=== PATIENT | female | born 1960 | race Caucasian/White ===

== ENCOUNTER 2021-12-06 06:41 | Outpatient (CLI) | payer OTHER, SELFPAY ==
[2021-12-06 08:21] VITALS: BMI 22.7
--- NOTE | 2021-12-06 08:25 | ECG_ITS ---
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 Interpretive Statements NAME OF STUDY: EXERCISE SESTAMIBI STRESS TEST INDICATION: [ELLER/HEART MURMUR, ] EXERCISE DATA: The patient was exercised by Robin protocol. Baseline heart rate was 61 beats per minute. Baseline blood pressure was 143/72 millimeters of mercury. Target heart rate was 134 beats per minute. Maximum heart rate achieved was 142 which was 107% of the target heart rate. Maximum blood pressure was 232/55 millimeters of mercury. Total exercise time was 6 minutes 58 seconds. Maximum METs achieved was 10.2.The reason for ending the test was completion of tolerated. The patient complained of shortness of breath during the stress test, which then resolved at the end of the test. ELECTROCARDIOGRAM: BASELINE: Showed sinus rhythm, normal axis, no significant ST-T changes at the baseline noted. [] EXERCISE: At the peak exercise level, [] No significant ST-T changes suggestive of ischemia noted. [] RECOVERY: During the recovery period, heart rate dropped appropriately. No significant ST-T changes in the recovery suggestive of ischemia noted. [] CONCLUSION: 1. Exercise capacity good 2. Heart rate response was appropriate 3. Blood pressure response was hypertensive 4. Symptoms not suggestive of ischemia. 5. Electrocardiogram portion of the stress test was not suggestive of ischemia. 6. Nuclear scan will be documented separately. Electronically Signed On 12-18-2021 12:48:54 CDT by Abdiel Pringle M.D. [id number]
--- NOTE | 2021-12-06 08:26 | NMCV_ITS ---
NM sundeep perf SPECT r/s* [id number] Juana Dawkins Age: 61 Gender: F : 1960 Exam Date: 12/06/2021 08:58 Ordering Phys: Dorota Luis MD ([email or web address]) Technologist: VIVEK Wood Exam Location: [facility] Indications: DYSPNEA ON EXERTION STRESS TEST Please see separate stress test report in [facility] for full findings IMAGE PROTOCOL Rest/Stress 1 Exercise Day Radiopharmaceutical Dose (mCi) Administration Site Administered by Rest: Tc-99m 10.7 IV VIVEK George Sestamibi Stress:Tc-99m 32.6 IV VIVEK George Sestamigiana Rest: 06-Dec-2021 60 Discovery 630 Stress: 06-Dec-2021 15 Discovery 630 Radiopharmaceutical was injected at 85 % maximum heart rate. Images obtained in supine and prone position. SPECT RESULTS Technical Quality: Excellent Raw Data Analysis: Normal Image Corrections: No attenuation or motion correction applied Summed Stress Score: 0 Summed Rest Score: 1 Summed Difference Score: 0 PERFUSION FINDINGS Fairly uniform myocardial tracer uptake with no significant perfusion abnormalities. FUNCTIONAL RESULTS (calculated via Gated SPECT) Stress Image LV EF (%): 84 Stress EDV (mL):83 TID: 0.85 Stress ESV (mL):13 FUNCTIONAL FINDINGS: Segmental wall motion analysis revealing no gross wall motion normalities IMPRESSIONS 1. Myocardial perfusion imaging revealing fairly uniform myocardial tracer uptake with no significant perfusion abnormalities. 2. Normal LV ejection fraction of 84%. 3. LV wall motion analysis revealing no gross wall motion abnormalities. 4. Normal LV volume Low probability for coronary ischemia, based on the above findings No similar previous studies are available for comparison Dr Dorota Luis MD [facility] (Electronically Signed) Final Date: 07 December 2021 19:10 S
--- NOTE | 2021-12-06 10:15 | USCV_ITS ---
Juancho Juana Age: 61 Gender: F : 1960 Exam Date: 12/06/2021 11:03 Ordering Phys: Dorota Luis MD ([email or web address]) Technologist: Cynthia Dixon Exam Location: [facility] [place] Indication: CP, BP: 130 / 70 HR: 67 Rhythm: Sinus Technical Quality: Adequate MEASUREMENTS (Male / Female) Normal Values 2D ECHO LV Diastolic Diameter PLAX 4.5 cm 4.2 - 5.9 / 3.9 - 5.3 cm LV Systolic Diameter PLAX 2.9 cm IVS Diastolic Thickness 1.1 cm 0.6 - 1.0 / 0.6 - 0.9 cm IVS Systolic Thickness 1.1 cm LVPW Diastolic Thickness 0.9 cm 0.6 - 1.0 / 0.6 - 0.9 cm LVPW Systolic Thickness 1.6 cm LVOT Diameter 2.0 cm LV Ejection Fraction 2D Teich 62.9 % LV Ejection Fraction MOD 2C 70.8 % LV Ejection Fraction 2C AL 73.3 % LA Diameter 2.8 cm LA Width 2.7 cm LA Height 4.4 cm RA Width 3.0 cm RA Height 4.5 cm IVC Diameter 1.4 cm DOPPLER AV Peak Velocity 162.0 cm/s LVOT Peak Velocity 84.0 cm/s AV Area Cont Eq vti 1.8 cm squared AV Area Cont Eq pk 1.7 cm squared MV Peak Velocity 79.0 cm/s MV Area PHT 5.8 cm squared Mitral E to A Ratio 0.9 MV E' Velocity 77.0 cm/s TR Peak Velocity 94.0 cm/s TR Peak Gradient 3.5 mmHg Right Atrial Pressure 3.0 mmHg Pulmonary Artery Systolic Pressu 6.5 mmHg PV Peak Velocity 83.7 cm/s RV Acceleration Time 0.1 s FINDINGS Left Ventricle Normal left ventricular size and systolic function, EF 65 %. No regional wall motion abnormalities. Right Ventricle The right ventricle is normal in size and function. Right Atrium The right atrium is normal in size. Left Atrium The left atrium is normal in size. Mitral Valve No gross abnormalities noted Aortic Valve Moderate aortic valve regurgitation. The aortic valve pressure half-time was 446 ms. Tricuspid Valve Trace tricuspid valve regurgitation. Pulmonic Valve No gross abnormalities noted Pericardium Normal pericardium without effusion. Aorta Normal ascending aorta dimension. IVC The inferior vena cava pulmonary and hepatic veins appear normal. CONCLUSIONS Normal left ventricular size and systolic function, EF 65 %. No regional wall motion abnormalities. Moderate aortic valve regurgitation. The aortic valve pressure half-time was 446 ms. Trace tricuspid valve regurgitation. Estimated pulmonary artery peak systolic pressure within normal limits There is no pericardial effusion. There are no intracardiac masses. No similar previous studies are available for comparison Dr Dorota Luis MD [facility] (Electronically Signed) Final Date: 08 December 2021 09:11 S
[2021-12-06 10:49] VITALS: BP 179/56; PULSE 96
== END 2021-12-06 06:42 | disposition home or self-care (01) ==
LOC: RAD 06:43 → CDL 07:31
PROVIDERS: PCP Internal Medicine; Visit Provider Internal Medicine Cardiovascular Disease
DX: R06.00 Dyspnea, unspecified (principal); R01.1 Cardiac murmur, unspecified
CPT/HCPCS: 78452; 93017; 93306; A9500

== ENCOUNTER → 2022-07-07 13:04 | Outpatient (BNVA) | payer OTHER, SELFPAY | PROVIDERS: PCP Internal Medicine; Visit Provider Internal Medicine Cardiovascular Disease | DX: E78.5 Hyperlipidemia, unspecified (principal); R06.02 Shortness of breath | CPT/HCPCS: 36415; 80048; 80158 ==

== ENCOUNTER 2022-12-06 09:07 | Outpatient (CLI) | payer OTHER, SELFPAY ==
--- NOTE | 2022-12-06 09:30 | USCV_ITS ---
Juana Dawkins Age: 62 Gender: F : 1960 Exam Date: 12/06/2022 09:42 Ordering Phys: Dorota Luis MD ([email or web address]) Technologist: JOSEPH Exam Location: [facility] [place] Indication: ar BP: 130 / 68 HR: 65 Rhythm: Sinus Technical Quality: Adequate MEASUREMENTS (Male / Female) Normal Values 2D ECHO LV Diastolic Diameter PLAX 4.8 cm 4.2 - 5.9 / 3.9 - 5.3 cm LV Systolic Diameter PLAX 3.2 cm IVS Diastolic Thickness 0.9 cm 0.6 - 1.0 / 0.6 - 0.9 cm IVS Systolic Thickness 1.4 cm LVPW Diastolic Thickness 1.1 cm 0.6 - 1.0 / 0.6 - 0.9 cm LVPW Systolic Thickness 1.4 cm LV Ejection Fraction 2D Teich 61.7 % LV Ejection Fraction MOD 2C 34.9 % LV Ejection Fraction 2C AL 36.7 % LA Diameter 3.2 cm Aorta at Sinotubular Diameter 2.0 cm IVC Diameter 1.5 cm M-MODE Aortic Annulus Diameter 2.7 cm LA Ao Ratio MM 1.3 MV E Point Septal Separation 0.7 cm DOPPLER AV Peak Velocity 150.0 cm/s LVOT Peak Velocity 125.0 cm/s MV Area PHT 4.6 cm squared Mitral E to A Ratio 0.8 MV E' Velocity 41.0 cm/s Mitral E to MV E' Ratio 6.9 Mitral E to LV E' Lateral Ratio 6.9 Mitral E to LV E' Septal Ratio 6.9 TR Peak Velocity 116.0 cm/s TR Peak Gradient 5.4 mmHg TV Peak E Velocity 74.0 cm/s Right Atrial Pressure 3.0 mmHg Pulmonary Artery Systolic Pressu 8.4 mmHg PV Peak Velocity 92.0 cm/s FINDINGS Left Ventricle Normal left ventricular size and systolic function, EF 55% .no regional wall motion abnormalities. Grade I/IV diastolic dysfunction (abnormal relaxation filling pattern), normal to mildly elevated filling pressures. Right Ventricle The right ventricle is normal in size and function. Right Atrium The right atrium is normal in size. Left Atrium The left atrium is normal in size. Mitral Valve No gross abnormalities noted Aortic Valve Thickened aortic valve. Moderate aortic valve regurgitation. The pressure half-time was 477 ms Tricuspid Valve No gross abnormalities noted Pulmonic Valve Appears to be minimally thickened Pericardium No pericardial effusion. Aorta Normal ascending aorta dimension. IVC Normal inferior vena cava. CONCLUSIONS Normal left ventricular size and systolic function, EF 55% .no regional wall motion abnormalities. Grade I/IV diastolic dysfunction (abnormal relaxation filling pattern), normal to mildly elevated filling pressures. Thickened aortic valve. Moderate aortic valve regurgitation. There is no pericardial effusion. There are no intracardiac masses. Compared to the study from 12/06/2021, there may not be a significant change Dr Dorota Luis MD [facility] (Electronically Signed) Final Date: 06 December 2022 18:10 S
== END 2022-12-06 09:08 | disposition home or self-care (01) ==
PROVIDERS: PCP Internal Medicine; Visit Provider Internal Medicine Cardiovascular Disease
DX: R06.09 Other forms of dyspnea (principal); I50.30 Unspecified diastolic (congestive) heart failure; I35.8 Other nonrheumatic aortic valve disorders; I35.1 Nonrheumatic aortic (valve) insufficiency
CPT/HCPCS: 36415; 80048; 80158; 93306